=== PATIENT | female | born 1990 | race Caucasian/White ===

== ENCOUNTER 2023-10-07 02:30 | Inpatient (IN) | payer BC, SELFPAY ==
[2023-10-07] VITALS (21 sets, daily range): BP systolic 99–133; BP diastolic 53–77; PULSE 62–81; RESP 16–18; TEMP 36.6–37.1; O2SAT 100; BMI 29.6
--- NOTE | 2023-10-07 03:46 | PM.OBHPLI ---
OB - H&P: HPI Labor/Induction History of Present Illness Date Seen: 10/07/23 Chief Complaint: The patient is a 32 year old 4 para 3 at 40 weeks gestation by LMP and 1st trimester ultrasound, who presents with SROM. Chief complaint: Maternity : 4 Para: 3 Narrative: Chikis Sotelo is a 32 year old female who has had a routine . Spontaneous rupture of clear fluid about midnight followed by onset of painful contractions about an hour later. Have been getting more intense. History of fast labor. History of Present Dating criteria: based on LMP care: good care Ultrasounds: normal 1st trimester US and normal mid trimester US Medical complications: none Labs Blood type: O (+) positive Rubella: immune RPR/VDLR: nonreactive GBS status: negative HBsAG: negative Review of Systems Status of ROS: Reports: 10 or more systems reviewed and unremarkable except as noted in History and below Meds Home Medications and Allergies Allergies Allergy/AdvReac Type Severity Reaction Status Date / Time Sulfa (Sulfonamide Allergy Unknown Verified 10/07/23 03:24 Antibiotics) OB - H&P: Exam Physical Exam: Vital signs: Pulse BP Pulse Ox 69 133/77 100 10/07/23 02:30 10/07/23 02:30 10/07/23 02:26 Narrative: Cervical exam 3/50/-3 per RN. Sitting on a birthing ball, appears comfortable. Head felt on exam. Baby has been cephalic on prior evaluations. Elected to defer further examination at this time due to patient preference of non-intervention. Detailed Labor and Delivery Exam: Tachysystole: No Contraction intensity: Moderate Fetus (Single): Amniotic Membrane Status: SROM Amniotic Membrane Fluid Description: Clear Monitor Accelerations: Present Monitor Decelerations: None Assembly Hand Variability: Moderate (6-25) OB - Problem Based A/P Additional Plan (1) Term : Status: Acute (2) SROM (spontaneous rupture of membranes): Status: Acute Plan Patient wishes to avoid all interventions and continuous monitoring. Desires intermittent monitoring. Declines ultrasound or further examination to confirm position. Will manage expectantly. Anticipate soon due to history of fast labors. Delivery/Labor/Induction Plan Plan: expectant management
--- NOTE | 2023-10-07 09:35 | PM.OBPNL ---
Subjective Time Seen by Provider: 07:45 Date Seen: 10/07/23 Narrative: SROM at home around 0000 and started leeann initially but contractions have become less strong and less frequent. Otherwise feeling well. She had a lot of leaking initially but that has decreased as well. Objective Vital Signs: Last Vital Signs Temp 98 F 10/07/23 08:10 Pulse 66 10/07/23 07:13 Resp 16 10/07/23 08:10 BP 102/56 L 10/07/23 07:13 Pulse Ox 100 10/07/23 02:26 Pelvic Exam Comments: Cervical exam not repeated at this time Contractions Contraction intensity: Moderate Plan Plan: Discussed with patient that pitocin would be recommended to get contractions going again and decrease risk of chorio but she declines. Will reevaluate around 8 hours after her first check to see if she is making change. If still not leeann regularly or making good change about 12-14 hours after rupture, will again recommend pitocin to decrease risk of chorio. She also wants to continue only intermittent auscultation. All evals normal so far per nursing.
--- NOTE | 2023-10-07 15:08 | P.OBPN_ITS ---
Subjective Time Seen by Provider: 14:45 Date Seen: 10/07/23 Narrative: She is really feeling any different over the last several hours. Only feeling occasional contractions that are not particularly uncomfortable. Not having any fevers. Objective Exam: Gravid uterus is soft and nontender. Baby is cephalic by Marvin's. Estimated weight approximately 3500 g. Pelvic exam below per RN. Vital Signs: Last Vital Signs Temp 97.8 F 10/07/23 14:15 Pulse 76 10/07/23 14:15 Resp 18 10/07/23 14:15 BP 99/54 L 10/07/23 11:55 Pulse Ox 100 10/07/23 02:26 Pelvic Exam Dilation (cm): 3.5 Effacement (%): 50 Station: -1 Comments: Per RN Contractions Monitor mode: Palpation Contraction pattern: Irregular Contraction intensity: Mild Assessment Monitor Decelerations: None Tracing Comments: She continues to only do Doppler auscultation for monitoring. Dop tones have all been at least in the 120s with no decelerations noted per RN. Plan Plan: Unfortunately her cervix is not significantly more dilated than it was previously when last checked about 12 hours ago. We again discussed recommendations for PROM including starting Pitocin either immediately or within a few hours after rupture membranes at term. She again is very hesitant to do this and does not want to start any medication. She would like to just have a natural labor. We discussed the risks of not augmenting at this point including significantly increased risk of infection including chorioamnionitis which may result in morbidity mortality for both mom and baby and increased risk for C- section. We discussed the rationale for these recommendations. She is still quite hesitant and wanted to discuss it further with her before deciding. It has now been about 15 hours since her water broke and she is not showing any signs of significant progress on her own. We discussed at length the risks of not augmenting. She understands this. Both the patient and her were present when we had this discussion.
--- NOTE | 2023-10-07 19:44 | PM.OBPNL ---
Subjective Time Seen by Provider: 19:49 Date Seen: 10/07/23 Narrative: Pt reports ctxs are irregular. When occur, nothing painful or that she has to breath through. She feels exhausted from not sleeping much last night. She wants to get some rest. she felt emotional earlier today which was unexpected for her she says, feels like that is better emotionally. Not feeling much physically--random irregular contractions. pt discussed with Dr Cisneros and nursing prior to talking with pt. Pt has been adamant throughout day about not starting pitocin. she is now feeling more open to considering in future if not going into labor but does not want to start now. Objective Vital Signs: Last Vital Signs Temp 98.1 F 10/07/23 19:28 Pulse 66 10/07/23 18:40 Resp 16 10/07/23 18:40 BP 121/63 10/07/23 16:49 Pulse Ox 100 10/07/23 02:26 Pelvic Exam Dilation (cm): 3.5 Effacement (%): 50 Station: -1 Comments: pt declines cervical checks Contractions Monitor mode: Palpation Contraction pattern: Irregular Contraction intensity: Mild Assessment Assessment: other Tracing Comments: Nursing following doppler protocol as pt requesting only doptones for monitoring. Per RN, doptones have been good. Plan Plan: Discussed PROM at now 18hours and concerns for increased risk of infections for pt and baby as ROM >18hours. Discussed recommendations for pitocin and risks vs benefits and reviewed her concerns at length. Reviewed current guidelines and recommendations. All ?'s answered. SHe wants to get rest, then try nipple stimulation and if this is not obviously showing signs of active labor, then she agrees to start pitocin at 12-12:30. She is aware of increased risks of infection to her and baby which could require further intervention and possible need for transferring baby to NICU if develops s/s infection. Nursing and pt aware of pts preferences and current plan.
[2023-10-08] VITALS (23 sets, daily range): BP systolic 95–144; BP diastolic 55–83; PULSE 65–70; RESP 16–18; TEMP 36.4–37.2; O2SAT 96–97
[2023-10-08 01:56] LABS: Basophils Absolute Auto 0.02 K/uL (0.00-0.30); Basophils Percent Auto 0.2 % (0.0-3.0); Eosinophils Absolute Auto 0.05 K/uL (0.00-0.50); Eosinophils Percent Auto 0.5 % (0.0-7.0); Hematocrit 33.7 % (33.0-51.0); Hemoglobin* 11.5 gm/dL (12.0-16.0); Immature Granulocytes Abs Auto 0.01 K/uL (0.00-0.30); Immature Granulocytes Pct Auto 0.1 %; Lymphocytes Percent Auto 15.5 % (20-44); Mean Corpuscular HGB Conc 34 gm/dL (32-36); Mean Corpuscular Hemoglobin 32 pg (26-34); Mean Corpuscular Volume 95 fL (80-100); Monocytes Percent Auto 5.1 % (0.0-11.0); Neutrophils Percent Auto 78.6 % (42.0-72.0); Platelet Count* 273 K/uL (140-440); Red Blood Count 3.55 m/uL (4.00-5.20); White Blood Count* 9.18 K/uL (4.50-11.00)
[2023-10-08 02:04] LABS: Slide Review Reflex No
[2023-10-08] MEDS: LACTATED RINGERS 1000 ML 1,000 ML 125 ML IV (02:08)
[2023-10-08] MEDS: OXYTOCIN 30 unit/500 ML in NS 30 UNIT/500 ML BAG IVPB (02:08)
--- NOTE | 2023-10-08 02:14 | PM.OBPNL ---
Subjective Time Seen by Provider: 02:00 Date Seen: 10/08/23 Narrative: pt feels 'ready to be done.' Has been trying nipple stimulation and no increase or change in contractions overall. Feels irregularly and notes overall no significant contractions change overall. Objective Vital Signs: Last Vital Signs Temp 98.5 F 10/08/23 01:00 Pulse 65 10/08/23 02:12 Resp 16 10/07/23 23:45 BP 117/66 10/08/23 02:12 Pulse Ox 100 10/07/23 02:26 Pelvic Exam Comments: Per RN 4.5/70/-1 at 0116 Contractions Monitor mode: Palpation Contraction pattern: Irregular Contraction intensity: Mild Assessment Assessment: other Amniotic Membrane Status: SROM Status: Category l Heart Rate Baseline: 130 Senior Living Variability: Moderate (6-25) Monitor Accelerations: Present Monitor Decelerations: None Plan Plan: at 40+wks with PROM now x 26hours. pt and her and I discussed recommendation for pitocin and pt is in agreement with starting. She would like to try to use as little as possible. We discussed typical protocols. We also discussed pitocin is usually increased at delivery baby and reasons why and that active management of placenta is standard of care. She is considering this. All ?'s answered.
[2023-10-08] MEDS: LIDOCAINE 1 % PF 30 ML INJECTION (03:51)
--- NOTE | 2023-10-08 04:16 | W.PM.VAGD1_ITS ---
Procedure Delivery date: 10/08/23 Procedure Done: Global Procedure Details: The patient is a 32 year-old G4 3 admitted on 10/07/23 at 40 Weeks, 1 Days gestation for premature rupture of membranes.? Cervical exam on admission was 3 cm/50 % effaced/-3 station with membranes ruptured in vertex presentation.? Contractions were every 2-3 minutes.? heart rate demonstrated baseline 125 bpm with moderate variability, + accelerations, - decelerations; a category 1 tracing.? SROM occurred at midnight on 10/07/23 with clear fluid. Contractions started initially after SROM but then tapered off and became irregular and were not uncomfortable. Pt declined any intervention choosing to monitor with doppler protocol, minimize cervical checks and declining pitocin. Her cervix remained unchanged throughout the day and patient continued to decline pitocin. See notes for details. At 26 hours of PROM, pt agreed to starting pitocin and this was started at 0208 10/08/23. ? Labor Analgesia:?None ? Pitocin:? Yes ? Labor onset:? 0315 ? Complete:? 0336 ? Pushing:? 0336 ? heart tones during second stage were 120's. ? At 0346 a viable female delivered in vertex presentation over intact perineum via spontaneous vaginal delivery.? Infant was placed on maternal abdomen.? Cord was clamped and cut after a 60+ second delay.? Mouth was bulb suctioned.? Infant weight pending.? 9 at 1 minute and 9 at 5 minutes.? Shoulder dystocia: no.? Nuchal cord: no. ? Placenta delivered spontaneously and complete at 0346 with a 3 vessel cord. ? Mother and were stable after delivery. ? Lacerations:? 1st degree midline repaired for hemostasis, repaired with 3- vicryl. ? Blood loss: 100 mL. Blood loss measurement type: EBL ? Sponge and needles counts are correct. Events: Prolonged Rupture of Membrane Intrapartal Events: Labor Induction, ROM >18 Hours and Precipitous Labor <3 Hrs Delivery monitor: external FHT Route of delivery: Laceration description: Perineal - 1st Degree Delivery repair: Vicryl Estimated blood loss (mL): 100 Anesthesia type: None [place] Infant Gender: Female presentation: vertex Placental Delivery Description: Spontaneous Cord Description: 3 Vessels total score - 1 minute: 9 total score - 5 minute: 9
[2023-10-08] MEDS: IBUPROFEN 600 MG TABLET PO ×3 (04:39→17:24)
[2023-10-08] MEDS: LANOLIN CREAM 1 APPLIC TOPICAL (21:50)
[2023-10-09 01:40] VITALS: BP 98/62; PULSE 63; RESP 16; TEMP 36.3; O2SAT 96
[2023-10-09] MEDS: IBUPROFEN 600 MG TABLET PO ×2 (01:43→07:41)
[2023-10-09 05:40] VITALS: BP 111/71; PULSE 61; RESP 16; TEMP 36.4; O2SAT 97
[2023-10-09 07:30] LABS: Hemoglobin* 10.6 gm/dL (12.0-16.0)
--- NOTE | 2023-10-09 07:30 | P.DS_ITS ---
DS: Providers Provider Date Seen: 10/09/23 Date of admission: 10/07/23 02:30 Primary care physician: Not a Local Provider Admitting Clinician: Renate Silva DO Attending Physician on discharge: Renate Silva DO DS: Diagnosis Discharge Diagnosis (1) Normal vaginal delivery: Status: Acute (2) Prolonged rupture of membranes, greater than 24 hours, delivered: Status: Acute Exam Narrative: Exam Narrative: Gen: No acute distress CV: Regular rate and rhythm, normal S1,S2, no murmurs Resp: Normal rate and effort, clear to auscultation bilaterally Abd: Soft, uterus firm and nontender at umbilicus Ext: Warm, dry, 2+ pedal pulses, no edema bilaterally. Calves non-tender to pal pation. Const: Vital Signs, click to edit/add: Vital Signs - 24 hr 10/08/23 09:08 10/08/23 12:50 10/08/23 17:09 Temperature 97.5 F L 98.5 F 98.6 F Pulse Rate [Left P ulse Oximeter] 65 67 70 Respiratory Rate 16 16 16 Blood Pressure [Le ft Arm] 99/64 95/63 99/63 Pulse Oximetry 97 96 96 Oxygen Delivery Me thod Room Air Room Air Room Air 10/08/23 21:34 10/09/23 01:40 10/09/23 05:40 Temperature 98.0 F 97.4 F L 97.6 F Pulse Rate [Left P ulse Oximeter] 67 63 61 Respiratory Rate 16 16 16 Blood Pressure [Le ft Arm] 124/82 98/62 111/71 Pulse Oximetry 96 96 97 Oxygen Delivery Me thod Room Air Room Air Room Air OB - DS: Summary Hospital Course Hospital Course: The patient is a 32 year old G 4P 4 at 40 weeks 1 day gestation that was admitted to the Center on 10/07/23 for premature ROM. She had normal spontaneous vaginal delivery complicated prolonged rupture of membranes >27hours without signs of infection. Needed pitocin, had precipitous delivery. She delivered a viable female infant. She is breast feeding. the patient has done well. Patient does note a history of anxiety/depression with her first (undiagnosed). Peripartum Data Infant delivery method: Vaginal Laceration description: Periurethral - 1st Degree Procedures: repaired complications: none [place] Infant Gender: Female Status at Discharge Functional status at discharge: independent ambulation Overall status at discharge: patient is progressing back to baseline Time Spent with Patient Time attestation: Total time spent providing and/or coordinating discharge services: Discharge Plan Discharge Disposition: Home, Self-Care Date of Admission: 10/07/23 02:30 Attending Provider on Discharge: Rachana Mckinnon Primary Care Provider: Provider,Not a Local Condition: Stable Anticipated Discharge Date/Time: 10/09/23 10:00 Discharge Medications: Continued ferrous sulfate 325 mg (65 mg iron) tablet,delayed release (DR/EC) 325 mg PO Q1D Discontinued docosahexaenoic acid [ DHA] 1 cap PO DAILY Discharge Orders: Discharge Order (Routine); Ordered 10/09/23 Ordered By: Rachana Mckinnon Patient Education: OB Vaginal/Breast Feeding Activity Level: Activity as Tolerated Discharge Diet: Regular Follow Up Appointments: Provider,Not a Local [Primary Care Provider] - Forms: [facility] Info Instructions DS:Data Additional Comments Additional comments: - Pelvic rest for 6 weeks (no intercourse, tampons or douching), or until one week after vaginal bleeding stops. - Daily activities for the first week should be limited to taking care of patient and her baby, and only as tolerated. - Call MD if fever > 100.4 degrees, bleeding more than 1 pad / hour, foul- smelling discharge, passage of golf-ball sized blood clots, or worsening of pain not controlled by medications. - Counseled on signs of post- depression - Contraception: condoms
[2023-10-09 07:47] VITALS: BP 95/66; PULSE 65; RESP 16; TEMP 36.3; O2SAT 97
== END 2023-10-09 11:00 | disposition home or self-care (01) | DRG 560 ==
LOC: OB OUT 03:05 → OB 03:05
PROVIDERS: Admitting Provider Family Medicine; Visit Provider Family Medicine
DX: O42.12 Full-term premature rupture of membranes, onset of labor more than 24 hours following rupture (principal); O70.0 First degree perineal laceration during delivery; Z3A.40 40 weeks gestation of pregnancy; Z37.0 Single live birth
CPT/HCPCS: 36415; 85018; 85025; 86850; 86900; 86901; A9270; J2001; J7120